=== PATIENT | female | born 1950 | race Caucasian/White ===

== ENCOUNTER 2017-02-03 07:49 | Day surgery (SDC) | payer MEDICARE, OTHER ==
[~2017-02-03 07:49] MED LIST: ADVAIR DIS14 PUFF/IN INH; CLARITIN10 MG PO; FLUNISOLIDE25 ML NASBOTH; LEXAPRO10 MG PO; MOBIC15 MG PO; OMEPRAZOLE20 MG PO; ULTRAM50 MG PO; VENTOLIN HFA8 GM INH
== END 2017-02-03 14:29 | disposition short-term general hospital (02) ==
LOC: SURGOP 07:49 → CLPAIN 07:49 → EDSTATUS 08:49 → CLPAIN 11:34 → SURGOP 14:29
PROC: 3E0U33Z Introduction of Anti-inflammatory into Joints, Percutaneous Approach (ICD-10-PCS; principal; 2017-02-03)
PROC: 3E0U3BZ Introduction of Anesthetic Agent into Joints, Percutaneous Approach (ICD-10-PCS; 2017-02-03)
DX: M46.1 Sacroiliitis, not elsewhere classified (principal); M48.06 Spinal stenosis, lumbar region; G89.29 Other chronic pain; M54.5 Low back pain; I10 Essential (primary) hypertension; E11.9 Type 2 diabetes mellitus without complications; K21.9 Gastro-esophageal reflux disease without esophagitis; E78.00 Pure hypercholesterolemia, unspecified; Z88.0 Allergy status to penicillin; Z79.899 Other long term (current) drug therapy
CPT/HCPCS: G0260-RT; J3301; J3490

== ENCOUNTER → 2017-03-03 | Outpatient (CLI) | payer MEDICARE, OTHER | END | disposition short-term general hospital (02) | LOC: CLPAIN 08:04 | DX: M48.06 Spinal stenosis, lumbar region (principal); M46.1 Sacroiliitis, not elsewhere classified ==

== ENCOUNTER 2017-03-04 03:58 | Emergency (ER) | payer MEDICARE, OTHER ==
[~2017-03-04] VITALS: Ht 162.6 cm; Wt 89.8 kg
== END 2017-03-04 04:55 | disposition short-term general hospital (02) ==
LOC: ER 03:58
DX: M25.562 Pain in left knee (principal); M19.90 Unspecified osteoarthritis, unspecified site; M54.9 Dorsalgia, unspecified; G89.29 Other chronic pain; Z79.899 Other long term (current) drug therapy; Z79.891 Long term (current) use of opiate analgesic
CPT/HCPCS: J1885

== ENCOUNTER → 2017-03-13 | Outpatient (CLI) | payer MEDICARE, OTHER | END | disposition short-term general hospital (02) | LOC: CLNEUR 07:52 | DX: M54.16 Radiculopathy, lumbar region (principal); M48.06 Spinal stenosis, lumbar region; I73.9 Peripheral vascular disease, unspecified; M43.16 Spondylolisthesis, lumbar region ==